=== PATIENT | female | born 1975 | race Hispanic/Latino ===

== ENCOUNTER 2018-04-29 20:45 | Emergency (ER) | payer OTHER ==
[2018-04-29] MEDS ORDERED: IPRATROPIUM/ALBUTEROL SULFATE 3 ML SOLUTION IH ONE (21:47)
== END 2018-04-29 23:01 | disposition home or self-care (01) ==
LOC: EDH 20:45
DX: R05 Cough (principal); R06.02 Shortness of breath
CPT/HCPCS: 71045; 87804; 94640